=== PATIENT | male | born 1950 | race Caucasian/White ===

== ENCOUNTER 2020-05-14 10:44 | Emergency (ER) | payer OTHER ==
[~2020-05-14] VITALS: Ht 180.3 cm; Wt 100.0 kg
[2020-05-14] MEDS ORDERED: METOPROL TAR25 MG PO (10:51)
[2020-05-14] MEDS ORDERED: PANTOPRAZOLE SO40 M1 PO (10:53)
[2020-05-14] MEDS ORDERED: ATORVASTATIN CA10 MG PO (10:54)
[2020-05-14] MEDS ORDERED: ASPIRIN81 MG PO (10:54)
[2020-05-14] MEDS ORDERED: DILT-XR120 MG PO (10:55)
[2020-05-14] MEDS ORDERED: CLOPIDOGREL75 MG PO (10:55)
[2020-05-14] MEDS ORDERED: LISINOPRIL10 MG PO (10:56)
[2020-05-14 16:06] VITALS: BP 150/85
== END 2020-05-14 16:22 | disposition left against medical advice (07) | DRG 552 ==
LOC: ED 10:44
DX: M48.061 Spinal stenosis, lumbar region without neurogenic claudication (principal); R20.2 Paresthesia of skin; E78.5 Hyperlipidemia, unspecified; I25.10 Atherosclerotic heart disease of native coronary artery without angina pectoris; K21.9 Gastro-esophageal reflux disease without esophagitis; Z86.19 Personal history of other infectious and parasitic diseases; Z20.828 Contact with and (suspected) exposure to other viral communicable diseases; Z91.19 Patient's noncompliance with other medical treatment and regimen

== ENCOUNTER 2020-06-18 11:20 | Emergency (ER) | payer OTHER ==
[~2020-06-18] VITALS: Ht 180.3 cm; Wt 75.0 kg
[~2020-06-18 11:20] MED LIST: ASPIRIN81 MG PO; ATORVASTATIN CA10 MG PO; CLOPIDOGREL75 MG PO; DILT-XR120 MG PO; LISINOPRIL10 MG PO; METOPROL TAR25 MG PO; PANTOPRAZOLE SO40 M1 PO
[2020-06-18 16:40] VITALS: BP 159/91
== END 2020-06-18 16:42 | disposition designated cancer center or children's hospital (05) | DRG 552 ==
LOC: ED 11:20
DX: M48.061 Spinal stenosis, lumbar region without neurogenic claudication (principal); M71.38 Other bursal cyst, other site; E78.5 Hyperlipidemia, unspecified; I25.10 Atherosclerotic heart disease of native coronary artery without angina pectoris; K21.9 Gastro-esophageal reflux disease without esophagitis; Z20.822 Contact with and (suspected) exposure to COVID-19